=== PATIENT | female | born 1935 | race Caucasian/White ===

== ENCOUNTER 2022-06-21 17:49 | Inpatient (IN) ==
[2022-06-23 04:51] LABS: Basophils % 0.4 %; Eosinophils # 0.2 K/mcL (0.0-0.6); Eosinophils % 3.5 %; Hematocrit 37.1 % (35.3-44.9); Hemoglobin 12.4 g/dL (11.5-15.4); Immature Granulocytes % 0.4 % (0-4); Lymphocytes # 1.7 K/mcL (0.6-4.6); Lymphocytes % 24.7 %; Mean Corpuscular HGB Conc 33.4 g/dL (31.6-35.5); Mean Corpuscular Hemoglobin 31.9 pg (28.0-33.3); Mean Corpuscular Volume 95.4 fL (83.0-100.0); Mean Platelet Volume 11.7 fL (9.4-12.4); Monocytes # 0.9 K/mcL (0.0-1.3); Monocytes % 12.6 %; Platelet Count 199 K/mcL (140-400); Red Blood Count 3.89 M/mcL (3.82-4.97); Segmented Neutrophils % 58.4 %; White Blood Count 6.8 K/mcL (4.3-11.1)
[2022-06-23 05:03] LABS: BUN/Creatinine Ratio 21 (6-26); Blood Urea Nitrogen 20 mg/dL (8-23); Calcium 9.9 mg/dL (8.6-10.3); Carbon Dioxide 29 mEq/L (23-29); Chloride 105 mEq/L (98-107); Glucose 114 mg/dL (70-105); Osmolality,Calculated 291 (280-300); Potassium 5.4 mEq/L (3.5-5.1); Sodium 139 mEq/L (136-145); eGFR For African Americans > 60 (> 60); eGFR For Non-African Americans 55 (> 60)
[2022-06-23] MEDS: *HR* Enoxaparin 40 MG/0.4 ML SYRINGE SQ SCH (06:27)
[2022-06-23] MEDS: Multivit/Ca/Min/Fe/FA 1 TAB TABLET PO SCH (09:44)
[2022-06-23] MEDS: Aspirin Enteric Coated 81 MG Tablet PO SCH (09:44)
[2022-06-23] MEDS: lisinopriL 10 MG TABLET PO SCH (09:44)
[2022-06-23] MEDS: Psyllium 1 PACKET POWD.PACK PO SCH (09:44)
[2022-06-23] MEDS: Cholecalciferol (D-3) 1,000 UNIT (25MCG) TABLET PO SCH (09:44)
[2022-06-23] MEDS: Levothyroxine 25 MCG TABLET PO SCH (09:44)
[2022-06-24] MEDS: *HR* Enoxaparin 40 MG/0.4 ML SYRINGE SQ SCH (04:10)
[2022-06-24] MEDS: Multivit/Ca/Min/Fe/FA 1 TAB TABLET PO SCH (08:10)
[2022-06-24] MEDS: Aspirin Enteric Coated 81 MG Tablet PO SCH (08:10)
[2022-06-24] MEDS: lisinopriL 10 MG TABLET PO SCH (08:10)
[2022-06-24] MEDS: Levothyroxine 25 MCG TABLET PO SCH (08:10)
[2022-06-24] MEDS: Cholecalciferol (D-3) 1,000 UNIT (25MCG) TABLET PO SCH (08:10)
[2022-06-24] MEDS: Psyllium 1 PACKET POWD.PACK PO SCH (08:11)
[2022-06-25] MEDS: *HR* Enoxaparin 40 MG/0.4 ML SYRINGE SQ SCH (04:38)
[2022-06-25 05:01] LABS: Hemoglobin 11.5 g/dL (11.5-15.4); Mean Corpuscular HGB Conc 32.9 g/dL (31.6-35.5); Mean Corpuscular Hemoglobin 31.1 pg (28.0-33.3); Mean Corpuscular Volume 94.6 fL (83.0-100.0); Mean Platelet Volume 11.2 fL (9.4-12.4); Platelet Count 201 K/mcL (140-400); Red Cell Distribution Width 13.7 % (11.5-14.5)
[2022-06-25 05:17] LABS: Alanine Aminotransferase 28 Units/L (7-52); Albumin 3.4 g/dL (3.5-5.7); Albumin/Globulin Ratio 1.4 (1.1-2.2); Alkaline Phosphatase 51 Units/L (34-104); Aspartate Amino Transferase 32 Units/L (13-39); BUN/Creatinine Ratio 26 (6-26); Bilirubin,Total 0.7 mg/dL (0.3-1.0); Blood Urea Nitrogen 24 mg/dL (8-23); Calcium 9.2 mg/dL (8.6-10.3); Carbon Dioxide 26 mEq/L (23-29); Chloride 106 mEq/L (98-107); Globulin 2.4 g/dL (2.4-3.5); Glucose 100 mg/dL (70-105); Magnesium 2.2 mg/dL (1.6-2.6); Osmolality,Calculated 294 (280-300); Potassium 3.6 mEq/L (3.5-5.1); Sodium 140 mEq/L (136-145); Total Protein 5.8 g/dL (6.4-8.9); eGFR For African Americans > 60 (> 60); eGFR For Non-African Americans 58 (> 60)
[2022-06-25] MEDS: lisinopriL 10 MG TABLET PO SCH (08:32)
[2022-06-25] MEDS: Multivit/Ca/Min/Fe/FA 1 TAB TABLET PO SCH (08:32)
[2022-06-25] MEDS: Aspirin Enteric Coated 81 MG Tablet PO SCH (08:32)
[2022-06-25] MEDS: Psyllium 1 PACKET POWD.PACK PO SCH (08:32)
[2022-06-25] MEDS: Cholecalciferol (D-3) 1,000 UNIT (25MCG) TABLET PO SCH (08:32)
[2022-06-25] MEDS: Levothyroxine 25 MCG TABLET PO SCH (08:32)
[2022-06-26] MEDS: *HR* Enoxaparin 40 MG/0.4 ML SYRINGE SQ SCH (05:24)
[2022-06-26] MEDS: Multivit/Ca/Min/Fe/FA 1 TAB TABLET PO SCH (08:13)
[2022-06-26] MEDS: Cholecalciferol (D-3) 1,000 UNIT (25MCG) TABLET PO SCH (08:14)
[2022-06-26] MEDS: Psyllium 1 PACKET POWD.PACK PO SCH (08:14)
[2022-06-26] MEDS: lisinopriL 10 MG TABLET PO SCH (08:14)
[2022-06-26] MEDS: Aspirin Enteric Coated 81 MG Tablet PO SCH (08:14)
[2022-06-26] MEDS: Levothyroxine 25 MCG TABLET PO SCH (08:14)
[2022-06-27] MEDS: *HR* Enoxaparin 40 MG/0.4 ML SYRINGE SQ SCH (06:52)
[2022-06-27] MEDS: Cholecalciferol (D-3) 1,000 UNIT (25MCG) TABLET PO SCH (11:53)
[2022-06-27] MEDS: Psyllium 1 PACKET POWD.PACK PO SCH (11:53)
[2022-06-27] MEDS: Multivit/Ca/Min/Fe/FA 1 TAB TABLET PO SCH (11:53)
[2022-06-27] MEDS: Aspirin Enteric Coated 81 MG Tablet PO SCH (11:53)
[2022-06-27] MEDS: Levothyroxine 25 MCG TABLET PO SCH (11:53)
[2022-06-27] MEDS: lisinopriL 10 MG TABLET PO SCH (11:53)
[2022-06-28] MEDS: *HR* Enoxaparin 40 MG/0.4 ML SYRINGE SQ SCH (04:45)
[2022-06-28] MEDS: Aspirin Enteric Coated 81 MG Tablet PO SCH (08:17)
[2022-06-28] MEDS: Cholecalciferol (D-3) 1,000 UNIT (25MCG) TABLET PO SCH (08:17)
[2022-06-28] MEDS: lisinopriL 10 MG TABLET PO SCH (08:17)
[2022-06-28] MEDS: Levothyroxine 25 MCG TABLET PO SCH (08:17)
[2022-06-28] MEDS: Multivit/Ca/Min/Fe/FA 1 TAB TABLET PO SCH (08:17)
[2022-06-28] MEDS: Psyllium 1 PACKET POWD.PACK PO SCH (08:17)
[2022-06-29 05:28] LABS: Basophils % 0.8 %; Eosinophils # 0.2 K/mcL (0.0-0.6); Eosinophils % 3.9 %; Hematocrit 33.9 % (35.3-44.9); Hemoglobin 11.5 g/dL (11.5-15.4); Immature Granulocytes % 0.4 % (0-4); Lymphocytes # 1.7 K/mcL (0.6-4.6); Lymphocytes % 35.6 %; Mean Corpuscular HGB Conc 33.9 g/dL (31.6-35.5); Mean Corpuscular Hemoglobin 31.8 pg (28.0-33.3); Mean Corpuscular Volume 93.6 fL (83.0-100.0); Mean Platelet Volume 10.8 fL (9.4-12.4); Monocytes # 0.6 K/mcL (0.0-1.3); Monocytes % 12.3 %; Neutrophils # 2.3 K/mcL (1.6-8.9); Platelet Count 248 K/mcL (140-400); Red Blood Count 3.62 M/mcL (3.82-4.97); Red Cell Distribution Width 13.5 % (11.5-14.5); White Blood Count 4.9 K/mcL (4.3-11.1)
[2022-06-29 05:50] LABS: BUN/Creatinine Ratio 22 (6-26); Blood Urea Nitrogen 20 mg/dL (8-23); Calcium 9.5 mg/dL (8.6-10.3); Carbon Dioxide 27 mEq/L (23-29); Chloride 107 mEq/L (98-107); Glucose 95 mg/dL (70-105); Magnesium 2.2 mg/dL (1.6-2.6); Osmolality,Calculated 292 (280-300); Potassium 3.8 mEq/L (3.5-5.1); Sodium 140 mEq/L (136-145); eGFR For African Americans > 60 (> 60); eGFR For Non-African Americans 60 (> 60)
[2022-06-29] MEDS: *HR* Enoxaparin 40 MG/0.4 ML SYRINGE SQ SCH (06:36)
[2022-06-29] MEDS: Levothyroxine 25 MCG TABLET PO SCH (08:08)
[2022-06-29] MEDS: Cholecalciferol (D-3) 1,000 UNIT (25MCG) TABLET PO SCH (08:08)
[2022-06-29] MEDS: lisinopriL 10 MG TABLET PO SCH (08:08)
[2022-06-29] MEDS: Aspirin Enteric Coated 81 MG Tablet PO SCH (08:08)
[2022-06-29] MEDS: Multivit/Ca/Min/Fe/FA 1 TAB TABLET PO SCH (08:08)
[2022-06-29] MEDS: Psyllium 1 PACKET POWD.PACK PO SCH (08:09)
[2022-06-30] MEDS: *HR* Enoxaparin 40 MG/0.4 ML SYRINGE SQ SCH (06:12)
[2022-06-30] MEDS: Psyllium 1 PACKET POWD.PACK PO SCH (08:28)
[2022-06-30] MEDS: Aspirin Enteric Coated 81 MG Tablet PO SCH (08:29)
[2022-06-30] MEDS: Multivit/Ca/Min/Fe/FA 1 TAB TABLET PO SCH (08:29)
[2022-06-30] MEDS: Levothyroxine 25 MCG TABLET PO SCH (08:29)
[2022-06-30] MEDS: lisinopriL 10 MG TABLET PO SCH (08:29)
[2022-06-30] MEDS: Cholecalciferol (D-3) 1,000 UNIT (25MCG) TABLET PO SCH (08:29)
[2022-07-01] MEDS: *HR* Enoxaparin 40 MG/0.4 ML SYRINGE SQ SCH (04:49)
[2022-07-01] MEDS: Aspirin Enteric Coated 81 MG Tablet PO SCH (08:55)
[2022-07-01] MEDS: Cholecalciferol (D-3) 1,000 UNIT (25MCG) TABLET PO SCH (08:56)
[2022-07-01] MEDS: Levothyroxine 25 MCG TABLET PO SCH (08:56)
[2022-07-01] MEDS: Psyllium 1 PACKET POWD.PACK PO SCH (08:56)
[2022-07-01] MEDS: lisinopriL 10 MG TABLET PO SCH (08:56)
[2022-07-01] MEDS: Multivit/Ca/Min/Fe/FA 1 TAB TABLET PO SCH (08:56)
[2022-07-02 05:14] LABS: Basophils % 0.8 %; Eosinophils # 0.2 K/mcL (0.0-0.6); Eosinophils % 3.6 %; Hematocrit 35.4 % (35.3-44.9); Hemoglobin 11.9 g/dL (11.5-15.4); Immature Granulocytes % 0.2 % (0-4); Lymphocytes # 1.7 K/mcL (0.6-4.6); Lymphocytes % 31.7 %; Mean Corpuscular HGB Conc 33.6 g/dL (31.6-35.5); Mean Corpuscular Hemoglobin 31.7 pg (28.0-33.3); Mean Corpuscular Volume 94.4 fL (83.0-100.0); Mean Platelet Volume 10.9 fL (9.4-12.4); Monocytes # 0.6 K/mcL (0.0-1.3); Monocytes % 11.4 %; Neutrophils # 2.8 K/mcL (1.6-8.9); Platelet Count 282 K/mcL (140-400); Red Blood Count 3.75 M/mcL (3.82-4.97); Red Cell Distribution Width 13.5 % (11.5-14.5); Segmented Neutrophils % 52.3 %; White Blood Count 5.3 K/mcL (4.3-11.1)
[2022-07-02] MEDS: *HR* Enoxaparin 40 MG/0.4 ML SYRINGE SQ SCH (05:21)
[2022-07-02 05:32] LABS: Alanine Aminotransferase 14 Units/L (7-52); Albumin 3.4 g/dL (3.5-5.7); Albumin/Globulin Ratio 1.2 (1.1-2.2); Alkaline Phosphatase 53 Units/L (34-104); Aspartate Amino Transferase 18 Units/L (13-39); BUN/Creatinine Ratio 26 (6-26); Bilirubin,Total 0.6 mg/dL (0.3-1.0); Blood Urea Nitrogen 23 mg/dL (8-23); Calcium 9.7 mg/dL (8.6-10.3); Carbon Dioxide 27 mEq/L (23-29); Chloride 107 mEq/L (98-107); Globulin 2.8 g/dL (2.4-3.5); Glucose 93 mg/dL (70-105); Magnesium 2.2 mg/dL (1.6-2.6); Osmolality,Calculated 293 (280-300); Potassium 3.9 mEq/L (3.5-5.1); Sodium 140 mEq/L (136-145); Total Protein 6.2 g/dL (6.4-8.9); eGFR For African Americans > 60 (> 60); eGFR For Non-African Americans > 60 (> 60)
[2022-07-02] MEDS: lisinopriL 10 MG TABLET PO SCH (09:01)
[2022-07-02] MEDS: Aspirin Enteric Coated 81 MG Tablet PO SCH (09:01)
[2022-07-02] MEDS: Multivit/Ca/Min/Fe/FA 1 TAB TABLET PO SCH (09:01)
[2022-07-02] MEDS: Levothyroxine 25 MCG TABLET PO SCH (09:01)
[2022-07-02] MEDS: Cholecalciferol (D-3) 1,000 UNIT (25MCG) TABLET PO SCH (09:01)
[2022-07-02] MEDS: Psyllium 1 PACKET POWD.PACK PO SCH (09:01)
[2022-07-03] MEDS: *HR* Enoxaparin 40 MG/0.4 ML SYRINGE SQ SCH (05:52)
[2022-07-03] MEDS: lisinopriL 10 MG TABLET PO SCH (10:06)
[2022-07-03] MEDS: Cholecalciferol (D-3) 1,000 UNIT (25MCG) TABLET PO SCH (10:06)
[2022-07-03] MEDS: Aspirin Enteric Coated 81 MG Tablet PO SCH (10:06)
[2022-07-03] MEDS: Psyllium 1 PACKET POWD.PACK PO SCH (10:07)
[2022-07-03] MEDS: Multivit/Ca/Min/Fe/FA 1 TAB TABLET PO SCH (10:07)
[2022-07-03] MEDS: Levothyroxine 25 MCG TABLET PO SCH (10:07)
[2022-07-04] MEDS: *HR* Enoxaparin 40 MG/0.4 ML SYRINGE SQ SCH (05:20)
[2022-07-04] MEDS: lisinopriL 10 MG TABLET PO SCH (08:06)
[2022-07-04] MEDS: Psyllium 1 PACKET POWD.PACK PO SCH (08:06)
[2022-07-04] MEDS: Aspirin Enteric Coated 81 MG Tablet PO SCH (08:06)
[2022-07-04] MEDS: Levothyroxine 25 MCG TABLET PO SCH (08:06)
[2022-07-04] MEDS: Cholecalciferol (D-3) 1,000 UNIT (25MCG) TABLET PO SCH (08:06)
[2022-07-04] MEDS: Multivit/Ca/Min/Fe/FA 1 TAB TABLET PO SCH (08:06)
[2022-07-05] MEDS: Levothyroxine 25 MCG TABLET PO SCH (05:27)
[2022-07-05] MEDS: *HR* Enoxaparin 40 MG/0.4 ML SYRINGE SQ SCH (05:27)
[2022-07-05] MEDS: lisinopriL 10 MG TABLET PO SCH (08:36)
[2022-07-05] MEDS: Multivit/Ca/Min/Fe/FA 1 TAB TABLET PO SCH (08:36)
[2022-07-05] MEDS: Aspirin Enteric Coated 81 MG Tablet PO SCH (08:36)
[2022-07-05] MEDS: Cholecalciferol (D-3) 1,000 UNIT (25MCG) TABLET PO SCH (08:36)
[2022-07-05] MEDS: Psyllium 1 PACKET POWD.PACK PO SCH (11:04)
[2022-07-06] MEDS: *HR* Enoxaparin 40 MG/0.4 ML SYRINGE SQ SCH (04:49)
[2022-07-06] MEDS: Levothyroxine 25 MCG TABLET PO SCH (04:49)
[2022-07-06 05:44] LABS: Hematocrit 35.5 % (35.3-44.9); Hemoglobin 11.9 g/dL (11.5-15.4); Mean Corpuscular HGB Conc 33.5 g/dL (31.6-35.5); Mean Corpuscular Hemoglobin 31.6 pg (28.0-33.3); Mean Corpuscular Volume 94.2 fL (83.0-100.0); Mean Platelet Volume 10.9 fL (9.4-12.4); Platelet Count 292 K/mcL (140-400); Red Blood Count 3.77 M/mcL (3.82-4.97); Red Cell Distribution Width 13.3 % (11.5-14.5); White Blood Count 5.5 K/mcL (4.3-11.1)
[2022-07-06 06:13] LABS: BUN/Creatinine Ratio 25 (6-26); Blood Urea Nitrogen 26 mg/dL (8-23); Calcium 9.8 mg/dL (8.6-10.3); Carbon Dioxide 28 mEq/L (23-29); Chloride 103 mEq/L (98-107); Glucose 90 mg/dL (70-105); Magnesium 2.1 mg/dL (1.6-2.6); Osmolality,Calculated 288 (280-300); Potassium 4.2 mEq/L (3.5-5.1); Sodium 137 mEq/L (136-145); eGFR For African Americans > 60 (> 60); eGFR For Non-African Americans 52 (> 60)
[2022-07-06] MEDS: Multivit/Ca/Min/Fe/FA 1 TAB TABLET PO SCH (09:02)
[2022-07-06] MEDS: Cholecalciferol (D-3) 1,000 UNIT (25MCG) TABLET PO SCH (09:02)
[2022-07-06] MEDS: lisinopriL 10 MG TABLET PO SCH (09:02)
[2022-07-06] MEDS: Aspirin Enteric Coated 81 MG Tablet PO SCH (09:03)
[2022-07-06] MEDS: Psyllium 1 PACKET POWD.PACK PO SCH (09:03)
[2022-07-07] MEDS: *HR* Enoxaparin 40 MG/0.4 ML SYRINGE SQ SCH (05:39)
[2022-07-07] MEDS: Levothyroxine 25 MCG TABLET PO SCH (05:39)
[2022-07-07 07:01] VITALS: BP 100/57; PULSE 63; RESP 18; TEMP 98.4; O2SAT 95
[2022-07-07] MEDS: Cholecalciferol (D-3) 1,000 UNIT (25MCG) TABLET PO SCH (08:18)
[2022-07-07] MEDS: Psyllium 1 PACKET POWD.PACK PO SCH (08:18)
[2022-07-07] MEDS: Aspirin Enteric Coated 81 MG Tablet PO SCH (08:18)
[2022-07-07] MEDS: Multivit/Ca/Min/Fe/FA 1 TAB TABLET PO SCH (08:18)
[2022-07-07] MEDS: lisinopriL 10 MG TABLET PO SCH (08:18)
== END 2022-07-07 13:51 | disposition home health service (06) | DRG 690 ==
LOC: INPGRE 06-22 19:59
PROVIDERS: ADMIT Family Medicine; ATTEND Family Medicine